=== PATIENT | male | born 1970 | race Caucasian/White ===

== ENCOUNTER → 2023-05-02 | Outpatient (CLI) | payer BC ==
[~2023-05-02] MED LIST: HYDROCODONE BIT1 T11 PO; LISINOPRIL AND1 TAB PO; NAPROSYN500 MG PO
== END | disposition home or self-care (01) ==
LOC: RAD 13:27
PROVIDERS: ATTEND Student in an Organized Health Care Education/Training Program
DX: M47.812 Spondylosis without myelopathy or radiculopathy, cervical region (principal); M48.02 Spinal stenosis, cervical region; M54.2 Cervicalgia

== ENCOUNTER 2023-08-26 13:40 | Emergency (ER) | payer OTHER, BC ==
[~2023-08-26] VITALS: Ht 180.3 cm; Wt 111.1 kg
[2023-08-26] MEDS ORDERED: Bacitracin Zinc 14 GM TUBE T ONE (14:10)
[2023-08-26 14:38] LABS: BASO # 0.1 10*3/uL (0.0-0.1); BASO % 0.9 % (0.0-1.0); EOS # 0.3 10*3/uL (0.0-0.4); EOS % 3.9 % (1.0-4.0); HEMATOCRIT 47.7 % (42.0-52.0); LYMPH # 1.8 10*3/uL (1.3-4.4); LYMPH % 20.3 % (27.0-41.0); MEAN CELL VOLUME 87.8 fl (80.0-94.0); MEAN CORPUSCULAR HGB 31.5 pg (27.0-31.0); MEAN CORPUSCULAR HGB CONC 35.8 g/dl (33.0-37.0); MEAN PLATELET VOLUME 9.6 fl (9.6-12.3); MONO # 0.6 10*3/uL (0.1-1.0); MONO % 6.3 % (3.0-9.0); NEUT # 5.9 10*3/uL (2.3-7.9); NEUT % 68.1 % (47.0-73.0); PLATELET COUNT AUTOMATED 204 10*3/uL (130-400); RED BLOOD COUNT 5.43 10*6/uL (4.50-5.90); RED CELL DISTRI WIDTH 11.9 % (0-14.5); WHITE BLOOD COUNT 8.7 10*3/uL (4.8-10.8)
[2023-08-26 14:50] LABS: ACT PARTIAL THROMBO TIME 26.8 SECONDS (20.0-32.1)
[2023-08-26 14:59] LABS: POTASSIUM 3.1 mmol/L (3.4-5.1); TOTAL PROTEIN 7.7 gm/dL (6.0-8.0)
[2023-08-26] MEDS ORDERED: MAGNESIUM OXIDE 400 MG TAB PO ONE (15:25)
[2023-08-26] MEDS ORDERED: POTASSIUM CHLORIDE 20 MEQ TAB PO ONE (15:25)
[2023-08-26] MEDS ORDERED: CEPHALEXIN500 M1 PO (15:28)
[2023-08-26] MEDS ORDERED: ANTIBIOTIC28.4 GM T (15:28)
[2023-08-26] MEDS ORDERED: XEROFORM PETRO1 EACH T (15:28)
== END 2023-08-26 16:01 | disposition home or self-care (01) ==
LOC: ED 13:40
PROVIDERS: Internal Medicine
DX: T24.101A Burn of first degree of unspecified site of right lower limb, except ankle and foot, initial encounter (principal); T24.102A Burn of first degree of unspecified site of left lower limb, except ankle and foot, initial encounter; T31.0 Burns involving less than 10% of body surface; E87.6 Hypokalemia; E83.42 Hypomagnesemia; I10 Essential (primary) hypertension; Z87.442 Personal history of urinary calculi; Z90.49 Acquired absence of other specified parts of digestive tract; X08.8XXA Exposure to other specified smoke, fire and flames, initial encounter; Y93.89 Activity, other specified; Y92.89 Other specified places as the place of occurrence of the external cause; Y99.0 Civilian activity done for income or pay